=== PATIENT | female | born 1985 | race Caucasian/White ===

== ENCOUNTER 2017-01-24 18:37 | Emergency (ER) | payer OTHER ==
[~2017-01-24] VITALS: Ht 160 cm; Wt 126.2 kg
[2017-01-24 19:28] VITALS: BP 140/86
== END 2017-01-24 19:32 | disposition home or self-care (01) ==
LOC: ED 19:26
DX: J02.9 Acute pharyngitis, unspecified (principal)
CPT/HCPCS: 99281

== ENCOUNTER 2017-06-19 09:52 | Emergency (ER) | payer OTHER ==
[~2017-06-19] VITALS: Ht 160 cm; Wt 125.2 kg
[2017-06-19 09:53] VITALS: BP 168/112
[2017-06-19 10:52] LABS: HCG UR LOT HCG7030192
[2017-06-19 10:58] LABS: HCG UR OBC PASS
== END 2017-06-19 11:15 | disposition home or self-care (01) ==
LOC: ED 10:15
DX: N76.0 Acute vaginitis (principal)
CPT/HCPCS: 81003; 81025; 87210; 87491; 87591; 87808; 99284

== ENCOUNTER 2018-12-25 00:08 | Emergency (ER) | payer OTHER ==
[~2018-12-25] VITALS: Ht 160 cm; Wt 107.5 kg
[2018-12-25] MEDS ORDERED: LIDOCAINE-MPF 1%, 5ML INFIL ONE (00:30)
[2018-12-25] MEDS ORDERED: LIDOCAINE-MPF 1%, 5ML ONE (01:49)
--- NOTE | 2018-12-25 02:00 | NUR ---
PELVIC AND I&D SET UP AT BEDSIDE. REPORT TO SUBHASH CARRION
--- NOTE | 2018-12-25 02:04 | NUR ---
ASSUMED CARE OF PATIENT. REPORT GIVEN FROM SUBHASH FORTE
[2018-12-25] MEDS ORDERED: CEPHALEXIN 500 MG CAPSULE ONE (02:08)
[2018-12-25] MEDS ORDERED: SULFAMETH./TRIMETHOPRIM DS 800MG/160MG TABLET ONE (02:08)
[2018-12-25] MEDS ORDERED: IBUPROFEN 600 MG TABLET ONE (02:08)
[2018-12-25 02:13] VITALS: BP 129/67
[2018-12-25] MEDS ORDERED: IBUPROFEN 200 MG TABLET PO ONE (02:30)
[2018-12-25] MEDS ORDERED: SULFAMETH./TRIMETHOPRIM DS 800MG/160MG TABLET PO ONE (02:30)
[2018-12-25] MEDS ORDERED: IBUPROFEN 600 MG TABLET PO ONE (02:30)
[2018-12-25] MEDS ORDERED: CEPHALEXIN 500 MG CAPSULE PO ONE (02:30)
== END 2018-12-25 02:39 | disposition home or self-care (01) ==
LOC: ED 02:38
DX: N75.1 Abscess of Bartholin's gland (principal)
CPT/HCPCS: 56420; 99284

== ENCOUNTER 2019-07-14 22:59 | Emergency (ER) | payer OTHER ==
[~2019-07-14] VITALS: Ht 162.6 cm; Wt 110.0 kg
[2019-07-14 23:03] VITALS: BP 160/87
--- NOTE | 2019-07-14 23:26 | NUR ---
DR. CARBONE AT BEDSIDE EVALUATING PT
--- NOTE | 2019-07-14 23:46 | NUR ---
PT IN IMAGING AT THIS TIME
[2019-07-14] MEDS ORDERED: IBUPROFEN 600 MG TABLET ONE (23:54)
[2019-07-14] MEDS ORDERED: OXYcodone/APAP 5/325MG TABLET ONE (23:55)
[2019-07-14] MEDS ORDERED: FLUORESCEIN OPHTHALMIC 1 MG STRIP ONE (23:55)
[2019-07-14] MEDS ORDERED: PROPARACAINE OPHTH 0.5%, 15ML ONE (23:55)
[2019-07-15] MEDS ORDERED: IBUPROFEN 600 MG TABLET PO ONE
[2019-07-15] MEDS ORDERED: OXYcodone/APAP 5/325MG TABLET PO ONE
--- NOTE | 2019-07-15 00:04 | NUR ---
PT MEDICATED PER EMAR. 5 RIGHT[address]ED. A[address] RESULTS AT THIS TIME
--- NOTE | 2019-07-15 00:31 | NUR ---
CHART UP FOR RECHECK
--- NOTE | 2019-07-15 01:06 | NUR ---
Patient/Caregiver given discharge instructions and they have confirmed that they understand the instructions. Patient ambulatory with steady gait.
== END 2019-07-15 07:00 | disposition home or self-care (01) ==
LOC: ED 23:38
DX: S06.0X0A Concussion without loss of consciousness, initial encounter (principal); S02.2XXA Fracture of nasal bones, initial encounter for closed fracture; F17.200 Nicotine dependence, unspecified, uncomplicated; E66.9 Obesity, unspecified; M54.2 Cervicalgia; Y04.8XXA Assault by other bodily force, initial encounter; Y93.89 Activity, other specified; Y92.009 Unspecified place in unspecified non-institutional (private) residence as the place of occurrence of the external cause; Y99.8 Other external cause status
CPT/HCPCS: 70450; 70486; 72125; 99284